=== PATIENT | female | born 1990 | race Caucasian/White ===

== ENCOUNTER 2016-09-27 18:11 | Inpatient (IN) | payer OTHER ==
--- NOTE | ~2016-09-27 | PN ---
Unit #: [id number] #: [id number] Patient: MALIHA LAU [id number] [facility] [address] [place] [address] [id number] I MR#: [id number] NAME: MALIHA LAU ROOM: [facility] Age: 26 Sex: F Admission Date: 09/27/2016 : 1990 Attending Physician: Chad Mata M.D. Admitting Physician: Chad Mata M.D. Primary Care Physician: Merari Back PROGRESS NOTES DATE 10/14/2016 DISCUSSION Ms. Lau is a 26-year-old white female who was seen today and chart was reviewed and case was discussed with the staff. She has been anxious, withdrawn though has not shown any agitation, irritability and has been cooperative with treatment recommendations as she has been taking medications and tolerating them fairly well with no reported side effects. MENTAL STATUS EXAMINATION Young white female who was casually dressed with fair personal hygiene and appears to be in no acute distress or discomfort. She was awake and alert on interaction with intact orientation. Her mood was anxious with congruent affect. Her speech is slow and restricted in content. She denies any suicidal or homicidal ideation, auditory or visual hallucinations. Insight and judgement remains slightly impaired. TREATMENT PLAN 1. Will continue her current medications and treatment protocol. Will monitor her response to the medications and make further adjustments as needed. 2. Will continue to follow up. Dictated by... Merari Hagan/lesvia TD: 10/14/2016 22:46 JOB #: [id number] Unit #: [id number] #: [id number] Patient: MALIHA LAUADARSH PROGRESS NOTES Page 1 of 1 X Chad Mata MD X PROGRESS NOTE
--- NOTE | ~2016-09-27 | PN ---
Unit #: [id number] #: [id number] Patient: MALIHA LAU [id number] [facility] [address] [place] [address] [id number] MR#: [id number] NAME: MALIHA LAU ROOM: [facility] Age: 26 Sex: F Admission Date: 09/27/2016 : 1990 Attending Physician: Chad Mata M.D. Admitting Physician: Chad Mata M.D. Primary Care Physician: Merari Back PROGRESS NOTES DATE October 15, 2016 DISCUSSION Ms. Maliha Lau is a 26-year-old white female, who was seen today and chart was reviewed and the case was discussed with the staff. She has been anxious, withdrawn, but has not shown any agitation or irritability or behavioral problems. She has been cooperative with the treatment recommendations and she has been taking the medications and tolerating them fairly well with no reported side effects. MENTAL STATUS EXAMINATION Young white female, who was casually dressed with fair personal hygiene and appears to be in no acute distress or discomfort. She was awake and alert on interaction with intact orientation. Her mood was anxious with a congruent affect. Her speech is slow and restricted in content. She denies any suicidal or homicidal ideations, and also denies any auditory or visual hallucinations. Her insight and judgment remain slightly impaired. TREATMENT PLAN 1. We will continue her on her current medications and treatment protocol, and will monitor her response to the medications, and make further adjustments as needed. 2. We will continue to followup. Dictated by... Merari Hagan/alexis TD: 10/16/2016 05:22 JOB #: [id number] Unit #: [id number] #: [id number] Patient: MALIHA LAU PROGRESS NOTES Page 1 of 1 X Chad Mata MD PROGRESS NOTE
--- NOTE | ~2016-09-27 | PN ---
Unit #: [id number] #: [id number] Patient: MALIHA LAU [id number] [facility] [address] [place] [address] [id number] MR#: [id number] NAME: MALIHA LAU ROOM: [facility] Age: 26 Sex: F Admission Date: 09/27/2016 : 1990 Attending Physician: Chad Mata M.D. Admitting Physician: Chad Mata M.D. Primary Care Physician: Merari Back PROGRESS NOTES DATE OF SERVICE October 05, 2016. DISCUSSION Ms. Lau is an 26-year-old, white female who was seen today and chart was reviewed. Her case was discussed with the staff. She has been anxious, withdrawn, and depressed. She is seclusive to herself and has been asking me all weekend long about getting the shock treatments (1) this morning, she stated that she still is (2) in that treatment modality, which I will make referral for ECT consultation. MENTAL STATUS EXAMINATION Young white female who was casually dressed with fair personal hygiene and appears to be in no acute distress or discomfort. She was awake and alert on interaction with intact orientation. Her mood was anxious and depressed with a congruent affect. She reports some suicidal ideation, but denies any homicidal ideation. Her insight and judgement remain slightly impaired. TREATMENT PLAN 1. We will continue her on current medications and treatment protocol. Will monitor her response to medications and make further adjustments as needed. 2. We will continue to follow up. Dictated by... Merari Hagan/daniel TD: 10/06/2016 12:36 JOB #: [id number] Unit #: [id number] #: [id number] Patient: MALIHA LAU FIDELINA PROGRESS NOTES Page 1 of 1 X Chad Mata MD PROGRESS NOTE
--- NOTE | ~2016-09-27 | PN ---
Unit #: [id number] #: [id number] Patient: MALIHA LAU [id number] [facility] [address] [place] [address] [id number] I MR#: [id number] NAME: MALIHA LAU ROOM: [facility] Age: 26 Sex: F Admission Date: 09/27/2016 : 1990 Attending Physician: Chad Mata M.D. Admitting Physician: Chad Mata M.D. Primary Care Physician: Merari Back PROGRESS NOTES DATE OF SERVICE: 10/09/2016 SUBJECTIVE Ms. Lau is a 26-year-old white female with mood disorder, who is scheduled to receive her second BCG today and so far has been doing fairly well with no agitation or irritability and has not shown any tolerability issues with the treatment. She has been taking her medications as well and tolerating them without any issues. MENTAL STATUS EXAMINATION Young white female, who was casually dressed with fair personal hygiene, appears to be in no acute distress or discomfort. She was awake and alert on interaction with intact orientation. Her mood was anxious with a congruent affect. She denies any suicidal or homicidal ideation. Her insight and judgment remain slightly impaired. TREATMENT PLAN 1. We will continue her on her current medications and treatment protocol. We will monitor her response to the medications and make further adjustments as needed. 2. We will continue to follow up. Dictated by... Merari Hagan/chinedul TD: 10/09/2016 12:55 JOB #: [id number] FIDELINA PROGRESS NOTES Page 1 of 1 X Chad Mata MD PROGRESS NOTE
--- NOTE | ~2016-09-27 | CO ---
Unit #: [id number] #: [id number] Patient: MALIHA SCHREIBER [id number] [place] [address] [id number] I MR#: [id number] NAME: MALIHA SCHREIBER ROOM: [facility] Age: 26 Sex: F Admission Date: 09/27/2016 : 1990 Attending Physician: Chad Mata M.D. Primary Care Physician: Brie Callahan M.D. Consultation Date: 10/11/2016 CONSULTATION REPORT SUBJECTIVE Maliha is a 26-year-old with an abnormal urinalysis. She has had some complaints of urgency and frequency. There have been no recorded increased temperatures. OBJECTIVE Urinalysis 1+ bacteria, 10 to 25 wbc's. ASSESSMENT Urinary tract infection. PLAN Bactrim DS one p.o. b.i.d. x3 days. Dictated by... Colleen AwadABertram. for Merari Cabrera/maritza TD: 10/12/2016 19:28 JOB #: [id number] CONSULTATION REPORT Page 1 of 1 X [place] CONSULTATION REPORT
--- NOTE | ~2016-09-27 | PN ---
Unit #: [id number] #: [id number] Patient: MALIHA LAU [id number] [facility] [address] [place] [address] [id number] MR#: [id number] NAME: MALIHA LAU ROOM: [facility] Age: 26 Sex: F Admission Date: 09/27/2016 : 1990 Attending Physician: Chad Mata M.D. Admitting Physician: Chad Mata M.D. Primary Care Physician: Merari Back PROGRESS NOTES DATE October 21, 2016 DISCUSSION Ms. Lau is a 26-year-old, white female who was seen today and chart was reviewed. Her case was discussed with the staff. She has been anxious and withdrawn, but has not shown any agitation, irritability, or behavioral problems and has been cooperative with treatment recommendations. She has been taking the medications and tolerating them fairly well. MENTAL STATUS EXAMINATION Young, white female who was casually dressed with fair personal hygiene and appears to be in no acute distress or discomfort. She was awake and alert on interaction with intact orientation. Her mood was anxious with a congruent affect. She denies any suicidal or homicidal ideations. Her insight and judgement remain slightly impaired. TREATMENT PLAN 1. We will continue on current medications and treatment protocol. Will monitor her response to the medications and make further adjustments as needed. 2. We will continue to follow up. Dictated by... Merari Hagan/daniel TD: 10/23/2016 09:04 JOB #: [id number] Unit #: [id number] #: [id number] Patient: MALIHA LAU FIDELINA PROGRESS NOTES Page 1 of 1 X Chad Mata MD X PROGRESS NOTE
--- NOTE | ~2016-09-27 | A ---
[facility] DATE: 10/05/16 Patient: MALIHA SCHREIBER Physician: ADRIANA Address: [address] [place] [address] Room/Bed: [address], Zip: [place] [id number] Admit Date: 09/27/16 Date of : [birth year] Height: 5 5 Weight: 209 95.97909 NUTRITIONAL ASSESSMENT: REASON: CONSULT "GASTROPARESIS" PATIENT ADMITTED FOR DEPRESSION AND SI PMH: GERD, MORBID OBESITY, MILD CP, HTN, HLD, HX ETOH ABUSE, LONG HX OF MOOD DISORDER AND COGNITIVE IMPAIRMENT Anthropometrics: HT: 5'5", WT: 210#, BMI: 34.9, %IBW: 168 Labs: 09/28/16- NUTRITIONAL LABS WNL Meds: SEROQUEL, VISTARIL, TOPAMAX, VITAMIN D, WELLBUTRIN XL, EFFEXOR XR Assessment: CHART REVIEWED, EVENTS NOTED. PATIENT IS A 26 Y/O FEMALE ADMITTED FOR DEPRESSION AND SI. PATIENT IS CURRENTLY UNEMPLOYED, HOMELESS, AND DENIES CURRENT SUBSTANCE ABUSE. PATIENT STATED A POOR APPETITE WITH NO RECENT WEIGHT CHANGES, AND HAS INCREASED SLEEP. IT IS SUSPECTED THAT PATIENT HAS HAD NON-COMPLIANCE WITH PSYCH MEDS PRIOR TO ADMIT. NURSING REPORTS CONSISTENTLY GOOD PO INTAKES AND PATIENT DID NOT SCORE ANY NUTRITIONAL RISK POINTS. PATIENT'S DIET IS CURRENTLY GI SOFT WITH FINGER FOODS ONLY, WITH LARGE PORTION ENTREES. NURSING REPORTED THAT PATIENT IS ON FINGER FOODS D/T HIGH RISK FOR SELF-HARMING BEHAVIORS, PATIENT IS ON A GI-SOFT DIET PER HER REQUEST, AND SHE HAS NO C/O N/V/D/C AND NO GASTROINTESTINAL DISTRESS ATT. PATIENT REQUESTED GI SOFT DIET BECAUSE APPARENTLY THAT WAS THE DIET ORDERED FOR HER IN THE HOSPITAL. WEIGHT HX PER [facility] SHOWS A ~20# WEIGHT GAIN X 1 YEAR. THERE ARE NO SKIN OR GI ISSUES NOTED ATT. PATIENT HAS VERY FREQUENT ADMISSIONS TO THIS FACILITY. CURRENT PSYCH MEDS MAY CAUSE WEIGHT AND APPETITE FLUCTUATIONS. Dx: EXCESSIVE CALORIC INTAKE R/T CURRENT CONDITION, OBESITY AEB ~20# WEIGHT GAIN X 1 YEAR, HIGH BMI, >110% OF IBW Intervention: 1. GI SOFT DIET WITH FINGER FOODS, 2. MEDS PER MD, 3. PSYCH Monitoring, Evaluation and Goals: 1. ADEQUATE PO INTAKES >50% OF MEALS 2. PREVENT, CORRECT MICRO/MACRO NUTRIENT DEFICIENCIES 3. PROMOTE A STEADY WEIGHT LOSS TOWARDS A HEALTHY BMI OF 19-25, PREVENT FURTHER WEIGHT GAIN MONITOR: WEIGHTS, LABS, PO/FLUID INTAKES [facility] DATE: 10/05/16 Patient: MALIHA SCHREIBER Physician: ADRIANA Address: [address] Room/Bed: [facility], Zip: [place] [address] Admit Date: 09/27/16 Date of : [birth year] Height: 5 5 Weight: 209 95.16619 Recommendations: 1. CONTINUE FINGER FOODS D/T SELF-HARM RISK TOLERATED. RECOMMEND D/CING GI SOFT DIET AND CHANGE TO HEART HEALTHY D/T NO C/O GASTROINTESTINAL DISTRESS ATT. ALSO RECOMMEND D/CING LARGE PORTION ENTREES D/T NO NUTRITIONAL NEED FOR INCREASED CALORIC INTAKES. IF PATIENT HAS C/O HUNGER OFFER HEALTHY SNACKS BETWEEN MEALS. 2. ENCOURAGE ADEQUATE PO AND FLUID INTAKES 3. IF PATIENT DOES HAVE C/O N/V/D/C OR GASTROPARESIS, PLEASE CONSULT MD FOR FURTHER ASSESSMENT. RD TO F/U PER PROTOCOL AND PRN R/T PATIENT MILDLY COMPROMISED Respectfully, MARIA G ODOM, RD, LD [facility] cc: client file
--- NOTE | ~2016-09-27 | PN ---
Unit #: [id number] #: [id number] Patient: MALIHA LAU [id number] [facility] [address] [place] [address] [id number] I MR#: [id number] NAME: MALIHA LAU ROOM: [facility] Age: 26 Sex: F Admission Date: 09/27/2016 : 1990 Attending Physician: Chad Mata M.D. Admitting Physician: Chad Mata M.D. Primary Care Physician: Merari Back PROGRESS NOTES DATE 10/22/2016 DISCUSSION Ms. Lau is a 26-year-old white female who was seen today and chart was reviewed and case was discussed with the staff. She has successfully completed her shock treatments and reports that she is feeling better and has been reporting improvement in depression and anxiety and has been taking medications and tolerating them fairly well with no reported side effects. MENTAL STATUS EXAMINATION Young white female who was casually dressed with fair personal hygiene, appears to be in no acute distress or discomfort. She was awake and alert on interaction with intact orientation. Her mood was anxious and depressed with congruent affect. She denies any suicidal or homicidal ideations. Her insight and judgement remains slightly impaired. TREATMENT PLAN 1. We will continue her on her current medications and treatment protocol. We will monitor her response to the medications and make further adjustments as needed. 2. We will continue to follow up. Dictated by... Merari Hagan/jack TD: 10/25/2016 21:44 JOB #: [id number] Unit #: [id number] #: [id number] Patient: MALIHA LAU FIDELINA PROGRESS NOTES Page 1 of 1 X Chad Mata MD X PROGRESS NOTE
--- NOTE | ~2016-09-27 | PN ---
Unit #: [id number] #: [id number] Patient: MALIHA LAU [id number] [facility] [address] [place] [address] [id number] MR#: [id number] NAME: MALIHA LAU ROOM: [facility] Age: 26 Sex: F Admission Date: 09/27/2016 : 1990 Attending Physician: Chad Mata M.D. Admitting Physician: Chad Mata M.D. Primary Care Physician: Merari Back PROGRESS NOTES DATE 10/02/2016 DISCUSSION Ms. Lau is a 26-year-old white female with mood disorder who was seen today and chart was reviewed and case was discussed with the staff who informed me that patient was found to be cutting on herself last night in her room and as such has been moved to a video monitoring private room and has been kept in controlled surveillance. Meanwhile, patient does report persistent depression, anxiety and feelings of hopelessness. She has been taking medications and tolerating them fairly well. MENTAL STATUS EXAMINATION Young white female who was casually dressed with fair personal hygiene and appears to be in no acute distress or discomfort. She was awake and alert on interaction with intact orientation. Her mood was anxious and depressed with congruent affect. Her speech is slow and restricted in content. She reports having suicidal ideation but denies any homicidal ideations and also denies any auditory or visual hallucinations. Her insight and judgement remains slightly impaired. TREATMENT PLAN 1. Will continue on current medications and treatment protocol. Will monitor her response to the medications and make further adjustments as needed. 2. Will continue to follow up. Dictated by... Merari Hagan/lesvia TD: 10/02/2016 15:18 JOB #: [id number] Unit #: [id number] #: [id number] Patient: MALIHA LAU PROGRESS NOTES Page 1 of 1 X Chad Mata MD PROGRESS NOTE
--- NOTE | ~2016-09-27 | PN ---
Unit #: [id number] #: [id number] Patient: MALIHA LAU [id number] [facility] [address] [place] [address] [id number] I MR#: [id number] NAME: MALIHA LAU ROOM: [facility] Age: 26 Sex: F Admission Date: 09/27/2016 : 1990 Attending Physician: Chad Mata M.D. Admitting Physician: Chad Mata M.D. Primary Care Physician: Merari Back PROGRESS NOTES DATE October 13, 2016 DISCUSSION Ms. Lau is a 26-year-old white female, who was seen today and chart was reviewed and the case was discussed with the staff. The patient has received three ECTs so far but still has been reporting persistent depressive symptoms with feelings of hopelessness. Meanwhile, she has been taking her medications and tolerating them fairly well with no reported side effects. MENTAL STATUS EXAMINATION Young white female, who was casually dressed with fair personal hygiene and appears to be in no acute distress or discomfort. She was awake and alert on interaction with intact orientation. Her mood was anxious and depressed with a congruent affect. Her speech is slow and goal-directed. She denies any current suicidal or homicidal ideations. Her insight and judgment remain slightly impaired. TREATMENT PLAN 1. We will continue her on her current medications and treatment protocol, and will monitor her response to the medications, and make further adjustments as needed. 2. We will continue to followup. Dictated by... Merari Hagan/alexis TD: 10/14/2016 10:30 JOB #: [id number] Unit #: [id number] #: [id number] Patient: MALIHA LAU PROGRESS NOTES Page 1 of 1 X Chad Mata MD PROGRESS NOTE
--- NOTE | ~2016-09-27 | PN ---
Unit #: [id number] #: [id number] Patient: MALIHA LAU [id number] [facility] [address] [place] [address] [id number] I MR#: [id number] NAME: MALIHA LAU ROOM: [facility] Age: 26 Sex: F Admission Date: 09/27/2016 : 1990 Attending Physician: Chad Mata M.D. Admitting Physician: Chad Mata M.D. Primary Care Physician: Merari Back PROGRESS NOTES DATE 10/20/2016. DISCUSSION Ms. Lau is a 26-year-old white female who was seen today and chart was reviewed and case was discussed with the staff. She has been anxious, withdrawn and reports persistent depression and anxiety. She has been taking medication and tolerating them. She has a flat affect. MENTAL STATUS EXAMINATION Young white female who was casually dressed with fair personal hygiene, appears to be in no acute distress or discomfort. She was awake and alert on interaction with intact orientation. Her mood was anxious and depressed with congruent affect. She reports suicidal ideation, but denies any homicidal ideation. Her insight and judgement remain slightly impaired. TREATMENT PLAN 1. We will continue her on her current medications and treatment protocol. We will monitor her response and make further adjustments as needed. 2. We will continue to follow up. Dictated by... Chad Mata M.D. IAA/gz TD: 10/21/2016 14:18 JOB #: [id number] Unit #: [id number] #: [id number] Patient: MALIHA LAUADARSH PROGRESS NOTES Page 1 of 1 X Chad Mata MD X PROGRESS NOTE
--- NOTE | ~2016-09-27 | PN ---
Unit #: [id number] #: [id number] Patient: MALIHA LAU [id number] [facility] [address] [place] [address] [id number] I MR#: [id number] NAME: MALIHA LAU ROOM: [facility] Age: 26 Sex: F Admission Date: 09/27/2016 : 1990 Attending Physician: Chad Mata M.D. Admitting Physician: Chad Mata M.D. Primary Care Physician: Merari Back PROGRESS NOTES DATE OF SERVICE October 06, 2016 DISCUSSION Ms. Lau is a 26-year-old, white female who was seen today and chart was reviewed. Her case was discussed with the staff. She has been anxious, withdrawn, and depressed with persistent depressive symptoms and was referred to electroconvulsive therapy yesterday on request and she has seen Dr. Eubanks and she states that she has been accepted and (1) that she might be able to start her first shock treatment tomorrow. MENTAL STATUS EXAMINATION Young white female who was casually dressed with fair personal hygiene and appears to be in no acute distress or discomfort. She was awake and alert on interaction with intact orientation. Her mood was anxious and depressed with a congruent affect. Her speech is slow and goal-directed. Patient reports having suicidal ideation, but denies any homicidal ideation. Her insight and judgement remain slightly impaired. TREATMENT PLAN 1. We will continue on current medications and treatment protocol. Will monitor her response to the medications and make further adjustments as needed. 2. We will continue to follow up. Dictated by... Merari Hagan/daniel TD: 10/06/2016 12:44 JOB #: [id number] Unit #: [id number] #: [id number] Patient: MALIHA LAU PROGRESS NOTES Page 1 of 1 X Chad Mata MD PROGRESS NOTE
--- NOTE | ~2016-09-27 | PN ---
Unit #: [id number] #: [id number] Patient: MALIHA LAU [id number] [facility] [address] [place] [address] [id number] I MR#: [id number] NAME: MALIHA LAU. ROOM: [facility] Age: 26 Sex: F Admission Date: 09/27/2016 : 1990 Attending Physician: Chad Mata M.D. Admitting Physician: Chad Mata M.D. Primary Care Physician: Merari Back PROGRESS NOTES DATE 10/18/2016 DISCUSSION Ms. Lau is a 26-year-old white female who was seen today and chart was reviewed and case was discussed with the staff. She has been anxious, withdrawn and rather seclusive to herself. Meanwhile, she has been cooperative with treatment recommendations as she has been taking the medications and tolerating them fairly well. MENTAL STATUS EXAMINATION Young white female who was casually dressed with fair personal hygiene, appears to be in no acute distress or discomfort. She was awake and alert on interaction with intact orientation. Her mood was anxious with congruent affect. She denies any suicidal or homicidal ideations. Her insight and judgement remains slightly impaired. TREATMENT PLAN 1. We will continue her on her current medications and treatment protocol. We will monitor her response and make further adjustments as needed. 2. We will continue to follow up. Dictated by... Merari Hagan/jack TD: 10/19/2016 22:28 JOB #: [id number] Unit #: [id number] #: [id number] Patient: MALIHA LAU PROGRESS NOTES Page 1 of 1 X Chad Mata MD X PROGRESS NOTE
--- NOTE | ~2016-09-27 | PN ---
Unit #: [id number] #: [id number] Patient: MALIHA LAU [id number] [facility] [address] [place] [address] [id number] I MR#: [id number] NAME: MALIHA LAU ROOM: [facility] Age: 26 Sex: F Admission Date: 09/27/2016 : 1990 Attending Physician: Chad Mata M.D. Admitting Physician: Chad Mata M.D. Primary Care Physician: Merari Back PROGRESS NOTES DATE OF SERVICE: 10/04/2016 SUBJECTIVE Ms. Lau is a 26-year-old white female, who was seen today and chart was reviewed and the case was discussed with the staff. She reports persistent anxiety and depression and has been complaining of nightmares and poor sleep at night. Meanwhile, she has been taking medications and tolerating them fairly well with no reported side effects. MENTAL STATUS EXAMINATION Young white female, who was casually dressed with fair personal hygiene, appears to be in no acute distress or discomfort. She was awake and alert on interaction with intact orientation. Her mood was anxious with a congruent affect. She denies any suicidal or homicidal ideation and also denies any auditory or visual hallucinations. Her insight and judgment remain slightly impaired. TREATMENT PLAN 1. We will continue on her current medications and treatment protocol. We will monitor her response to medications and make further adjustments as needed. 2. We will continue to follow up. Dictated by... Merari Hagan/maritza TD: 10/06/2016 06:17 JOB #: [id number] [facility] PROGRESS NOTES Page 1 of 1 X Chad Mata MD PROGRESS NOTE
--- NOTE | ~2016-09-27 | PN ---
Unit #: [id number] #: [id number] Patient: MALIHA LAU [id number] [facility] [address] [place] [address] [id number] I MR#: [id number] NAME: MALIHA LAU ROOM: 12 Age: 26 Sex: F Admission Date: 09/27/2016 : 1990 Attending Physician: Chad Mata M.D. Admitting Physician: Chad Mata M.D. Primary Care Physician: Merari Back PROGRESS NOTES DATE September 30, 2016 DISCUSSION Ms. Lau is a 26-year-old white female, who was seen today and chart was reviewed and the case was discussed with the staff. She reports not feeling any better and reports persistent depression and anxiety and having suicidal thoughts with a plan to overdose and asked me if she will be a candidate for shock treatment. Meanwhile, she has been taking the medications and tolerating them fairly well but has been complaining of excessive sedation from the nighttime dose of Seroquel which hampers her ability to function in the daytime and wants the dose to e cut into half. MENTAL STATUS EXAMINATION Young white female, who was casually dressed with fair personal hygiene and appears to be in no acute distress or discomfort. She was awake and alert on interaction with intact orientation. Her mood was anxious with a congruent affect. She reports having suicidal ideation but denies any homicidal ideations. Her insight and judgment remain significantly impaired. TREATMENT PLAN 1. We will continue her on her current medications and treatment protocol, and will monitor her response to the medications, and make further adjustments as needed. 2. We will continue to followup. Dictated by... Merari Hagan/alexis TD: 09/30/2016 12:58 JOB #: [id number] Unit #: [id number] #: [id number] Patient: MALIHA LAU PROGRESS NOTES Page 1 of 1 X Chad Mata MD PROGRESS NOTE
--- NOTE | ~2016-09-27 | PN ---
Unit #: [id number] #: [id number] Patient: MALIHA LAU [id number] [facility] [address] [place] [address] [id number] MR#: [id number] NAME: MALIHA LAU ROOM: [facility] Age: 26 Sex: F Admission Date: 09/27/2016 : 1990 Attending Physician: Chad Mata M.D. Admitting Physician: Chad Mata M.D. Primary Care Physician: Merari Back PROGRESS NOTES DATE 10/12/2016 DISCUSSION Ms. Lau is a 26-year-old white female who was seen today and chart was reviewed and case was discussed with the staff. She has been anxious, withdrawn and rather seclusive to herself and is scheduled to receive her third ECT today and so far has not had any tolerability issues but she has not been able to experience any therapeutic benefits yet. MENTAL STATUS EXAMINATION Young white female who was casually dressed with fair personal hygiene, appears to be in no acute distress or discomfort. She was awake and alert on interaction with intact orientation. Her mood was anxious and depressed with congruent affect. She denies any suicidal or homicidal ideations. Also, denies any auditory or visual hallucinations. Her insight and judgement remains slightly impaired. TREATMENT PLAN 1. We will continue her on her current medications and treatment protocol. We will monitor her response to the medications and make further adjustments as needed. 2. We will continue to follow up. Dictated by... Merari Hagan/jack TD: 10/14/2016 00:42 JOB #: [id number] Unit #: [id number] #: [id number] Patient: MALIHA LAU FIDELINA PROGRESS NOTES Page 1 of 1 X Chad Mata MD PROGRESS NOTE
--- NOTE | ~2016-09-27 | PA ---
Unit #: [id number] #: [id number] [facility]: [facility] [id number] [facility] [place] [address] [id number] I MR#: [id number] NAME: MALIHA LAU ROOM: 12 Age: 26 Sex: F Admission Date: 09/27/2016 : 1990 Date of Assessment: 09/28/2016 Attending Physician: Chad Mata M.D. Admitting Physician: Chad Mata M.D. Primary Care Physician: Brie Callahan M.D. PSYCHIATRIC ASSESSMENT DATE OF SERVICE 09/28/2016. IDENTIFYING DATA Ms. Lau is a 26-year-old single white female who is very well known to us from previous multiple encounters and was self-referred to the hospital, and was transferred to us from [facility]. CHIEF COMPLAINT "Suicidal ideation. My plan is to overdose on my blood pressure medication." HISTORY OF PRESENT ILLNESS Ms. Lau is a 26-year-old white female with long history of mood disorder and cognitive impairment, who is known to us from previous encounter and was self-referred to the hospital. She walks into the emergency room at [facility] reporting having suicidal ideation with a plan to overdose on blood pressure medication and that she had nightmares, then she found out that her ex-boyfriend just got engaged, and does endorse increasing stress, trauma, depression, anxiety, feelings of hopelessness and helplessness, and suicidal ideations with intent and plan, and was seen to be danger to self and as such, recommendation for inpatient level of care. SUBSTANCE ABUSE HISTORY The patient reports history of alcohol abuse, but denies any other drug abuse. She reports that she has not had anything to drink in the last week. PAST PSYCHIATRIC HISTORY The patient has had history of multiple inpatient psychiatric hospitalizations at [facility] and has been diagnosed and treated for mood disorder. Review of the medical records indicate that she is supposed to be on a combination of Seroquel, Wellbutrin, and Effexor, though it is not clear if she has been compliant with medications. PAST MEDICAL HISTORY The patient's medical history is significant for gastroesophageal reflux disease asthma. ALLERGIES Morphine. PERSONAL AND SOCIAL HISTORY Unit #: [id number] #: [id number] Patient: MALIHA LAU A 26-year-old white female who reports that she is single, unemployed, and homeless and has poor social support system. MENTAL STATUS EXAMINATION Young white female who was casually dressed with fair personal hygiene, appears to be in no acute distress or discomfort. She was awake and alert on interaction with intact orientation to time, place, and person. Her mood was anxious and depressed with a congruent affect. Her speech was slow and goal directed. She reports having suicidal ideation, but denies any homicidal ideations, and also denies any auditory or visual hallucinations. Her insight and judgment remain significantly impaired. DIAGNOSTIC IMPRESSION Psychiatric: Major depressive disorder, recurrent, moderate, without psychotic features. Medical: Asthma, gastroesophageal reflux disease. Stressors: Moderate psychosocial stressors. TREATMENT PLAN 1. The patient has presented with history of mood disorder and has been decompensating and will need inpatient hospitalization for safety and stabilization. We will start her back on her home medications. We will adjust the medications and monitor response. 2. Supportive therapy was provided to the patient. 3. Safe, structured, and nourishing environment will be provided. ESTIMATED LENGTH OF STAY 5 to 7 days. ABILITY TO HELP SELF Limited. WILLINGNESS TO HELP SELF The patient appears to be willing to help self. STRENGTHS 1. Communicative. 2. Cooperative. PROBLEMS 1. Chronic dysphoric symptoms. 2. Poor social support system. DISCHARGE CRITERIA This will be contingent upon the patient's ability to show resolution of her depression and anxiety and her ability to stay safe to herself, particularly after discharge from the hospital. Dictated by... Merari Hagan/maritza TD: 09/28/2016 23:37 JOB #: [id number] Unit #: [id number] #: [id number] Patient: MALIHA LAU PSYCHIATRIC ASSESSMENT Page 1 of 1 X Chad Mata MD PSYCHIATRIC ASSESSMENT
--- NOTE | ~2016-09-27 | PN ---
Unit #: [id number] #: [id number] Patient: MALIHA LAU [id number] [facility] [address] [place] [address] [id number] I MR#: [id number] NAME: MALIHA LAU ROOM: [facility] Age: 26 Sex: F Admission Date: 09/27/2016 : 1990 Attending Physician: Chad Mata M.D. Admitting Physician: Chad Mata M.D. Primary Care Physician: Merari Back PROGRESS NOTES DATE 10/16/2016 DISCUSSION Ms. Lau is a 26-year-old white female who was seen today and chart was reviewed and case was discussed with the staff. She has been anxious, withdrawn and was getting ready to go for her next ECT this morning and so far has been tolerating them fairly well though has not been able to show much of a therapeutic response. MENTAL STATUS EXAMINATION Young white female who was casually dressed with fair personal hygiene and appears to be in no acute distress or discomfort. She was awake and alert on interaction with intact orientation. Her mood was anxious and depressed with congruent affect. She reports having suicidal ideation but denies any homicidal ideations. Her insight and judgement remains slightly impaired. TREATMENT PLAN 1. We will continue on current medications and treatment protocol. Will monitor her response to the medications and make further adjustments as needed. 2. Will continue to follow up. Dictated by... Chad Mata M.D. IAA/walth TD: 10/16/2016 22:59 JOB #: [id number] Unit #: [id number] #: [id number] Patient: MALIHA LAU FIDELINA PROGRESS NOTES Page 1 of 1 X Chad Mata MD X PROGRESS NOTE
--- NOTE | ~2016-09-27 | PN ---
Unit #: [id number] #: [id number] Patient: MALIHA LAU [id number] [facility] [address] [place] [address] [id number] I MR#: [id number] NAME: MALIHA LAU ROOM: 12 Age: 26 Sex: F Admission Date: 09/27/2016 : 1990 Attending Physician: Chad Mata M.D. Admitting Physician: Chad Mata M.D. Primary Care Physician: Merari Back PROGRESS NOTES DATE OF SERVICE 09/29/2016 DISCUSSION Ms. Lau is a 26-year-old white female who was seen today. Chart was reviewed and case was discussed with the staff. She has been anxious, withdrawn, depressed, and rather seclusive to herself and has been expressing persistent feelings of hopelessness. Meanwhile, she has been taking the medications and tolerating them fairly well with no reported side effects. MENTAL STATUS EXAMINATION Young white female who is casually dressed with fair personal hygiene, appears to be in no acute distress or discomfort. She was awake and alert on interaction with intact orientation. Her mood is anxious and depressed with congruent affect. She reports having suicidal ideation but denies any homicidal ideation. Her insight and judgment remain slightly impaired. TREATMENT PLAN 1. We will continue her on her current medications and treatment protocol. We will monitor her response to the medications and make further adjustments as needed. 2. We will continue to follow up. Dictated by... Chad Mata M.D. IAA/bzg TD: 09/29/2016 10:56 JOB #: [id number] Unit #: [id number] #: [id number] Patient: MALIHA LAU FIDELINA PROGRESS NOTES Page 1 of 1 X Chad Mata MD PROGRESS NOTE
--- NOTE | ~2016-09-27 | PN ---
Unit #: [id number] #: [id number] Patient: MALIHA LAU [id number] [facility] [address] [place] [address] [id number] I MR#: [id number] NAME: MALIHA LAU ROOM: [facility] Age: 26 Sex: F Admission Date: 09/27/2016 : 1990 Attending Physician: Chad Mata M.D. Admitting Physician: Chad Mata M.D. Primary Care Physician: Merari Back PROGRESS NOTES DATE 10/08/2016 DISCUSSION Ms. Lau is a 26-year-old white female who was seen today and chart was reviewed and case was discussed with the staff. She received her first ECT yesterday. She tolerated it fairly well and denies having any tolerability issues with it. Meanwhile, she has taking medications and tolerating them fairly well with no reported side effects. MENTAL STATUS EXAMINATION Young white female who was casually dressed with fair personal hygiene, appears to be in no acute distress or discomfort. She was awake and alert on interaction with intact orientation. Her mood was anxious with congruent affect. She denies any suicidal or homicidal ideations. Her insight and judgement remains slightly impaired. TREATMENT PLAN 1. We will continue her on her current medications and treatment protocol. We will monitor her response to the medication and make further adjustments as needed. 2. We will continue to follow up. Dictated by... Merari Hagan/jack TD: 10/12/2016 04:14 JOB #: [id number] Unit #: [id number] #: [id number] Patient: MALIHA LAU FIDELINA PROGRESS NOTES Page 1 of 1 X Chad Mata MD X PROGRESS NOTE
--- NOTE | ~2016-09-27 | DS ---
Unit #: [id number] #: [id number] [facility]: [facility] LAU [id number] [facility] [place] [address] [id number] I MR#: [id number] NAME: MALIHA LAU ROOM: [facility] Age: 26 Sex: F Admission Date: 09/27/2016 : 1990 Discharge Date: 10/23/2016 Attending Physician: Chad Mata M.D. Primary Care Physician: Brie Callahan M.D. DISCHARGE SUMMARY IDENTIFYING DATA Ms. Lau is a 26-year-old single, white female, who is known to us from previous encounter and was self-referred to the hospital. DISCHARGE DIAGNOSES Psychiatric: Major depressive disorder, recurrent, moderate, without psychotic features. Medical: Asthma. Stressors: Moderate psychosocial stressors. HISTORY OF PRESENT ILLNESS Please see initial psychiatric evaluation for details. PAST PSYCHIATRIC HISTORY Please see initial psychiatric evaluation for details. PAST MEDICAL HISTORY Please see initial psychiatric evaluation for details. HOSPITAL COURSE The patient was admitted to the adult psychiatric unit at [facility] and was oriented to the hospital environment. Routine p.r.n. medications were initiated, and she was started back on her home medications and medications were adjusted. However, the patient was voicing some persistent depressive symptoms with feelings of hopelessness and helplessness, and suicidal ideations, and was not responding to medications and medications were maintained. The patient requested that she wanted to be considered a candidate for electroconvulsive therapy treatment and medical consultation with Dr. Eubanks for such treatment was made and she was approved and was able to get her treatment started, which led to the prolonged treatment stay in the hospital; however, she was polite and pleasant and cooperative with treatment recommendation and following treatment recommendations and was able to complete electroconvulsive therapy treatment without any complications, hesitation, and was able to show a therapeutic response with significant improvement in her depressive symptoms and as such, it was decided that she will be discharged home. We will continue treatment on an outpatient basis. DISCHARGE MEDICATIONS Effexor XR 150 mg a day for depression, Wellbutrin XL 300 mg in the morning for depression, Topamax 100 mg b.i.d. for mood disorder, Minipress 2 mg at bedtime for PTSD, vitamin D3 of 1000 units a day for vitamin D deficiency, Protonix 40 mg a day for acid reflux, Singulair 10 mg at bedtime for allergies, Claritin 10 mg a day for allergies, and Seroquel Unit #: [id number] #: [id number] Patient: MALIHA LAU 100 mg at bedtime for mood disorder. DISCHARGE CONDITION Stable. PROGNOSIS Fair. Dictated by... Merari Hagan/maritza TD: 10/23/2016 23:28 JOB #: [id number] DISCHARGE SUMMARY Page 1 of 1 X Chad Mata MD X DISCHARGE SUMMARY
--- NOTE | ~2016-09-27 | PN ---
Unit #: [id number] #: [id number] Patient: MALIHA LAU [id number] [facility] [address] [place] [address] [id number] I MR#: [id number] NAME: MALIHA LAU ROOM: [facility] Age: 26 Sex: F Admission Date: 09/27/2016 : 1990 Attending Physician: Chad Mata M.D. Admitting Physician: Chad Mata M.D. Primary Care Physician: Merari Back PROGRESS NOTES DATE 10/17/2016 DISCUSSION Ms. Lau is a 26-year-old white female with mood disorder who was seen today and chart was reviewed and case was discussed with the staff. She has been anxious, withdrawn though has not shown any agitation, irritability and has been cooperative with treatment recommendations as she has been taking the medications and tolerating them fairly well with no reported side effects. MENTAL STATUS EXAMINATION Young white female who was casually dressed with fair personal hygiene, appears to be in no acute distress or discomfort. She was awake and alert on interaction with intact orientation. Her mood was anxious with congruent affect. She denies any suicidal or homicidal ideations. Her insight and judgement remains slightly impaired. TREATMENT PLAN 1. We will continue her on her current medications and treatment protocol. We will monitor her response to the medication and make further adjustments as needed. 2. We will continue to follow up. Dictated by... Merari Hagan/jack TD: 10/19/2016 02:27 JOB #: [id number] Unit #: [id number] #: [id number] Patient: MALIHA LAU FIDELINA PROGRESS NOTES Page 1 of 1 X Chad Mata MD PROGRESS NOTE
--- NOTE | ~2016-09-27 | PN ---
Unit #: [id number] #: [id number] Patient: MALIHA LAU [id number] [facility] [address] [place] [address] [id number] I MR#: [id number] NAME: MALIHA LAU ROOM: [facility] Age: 26 Sex: F Admission Date: 09/27/2016 : 1990 Attending Physician: Chad Mata M.D. Admitting Physician: Chad Mata M.D. Primary Care Physician: Merari Back PROGRESS NOTES DATE OF SERVICE October 10, 2016 DISCUSSION Ms. Lau is a 26-year-old, white female who was seen today and chart was reviewed. Her case was discussed with the staff. They report patient has been anxious, withdrawn, and rather seclusive to herself and has received two ECTs so far without any tolerability issues. support services tech has brought to my attention that patient has also (1) and TB skin test needs to be initiated to look for a different placement. MENTAL STATUS EXAMINATION Young, white female who was casually dressed with fair personal hygiene and appears to be in no acute distress or discomfort. She was awake and alert on interaction with intact orientation. Her mood was anxious with a congruent affect. She denies any suicidal or homicidal ideation and also denies any auditory or visual hallucinations. Her insight and judgement remain slightly impaired. TREATMENT PLAN 1. Will continue on current medications and treatment protocol. Will monitor her response to the medications and make further adjustments as needed. 2. We will continue to follow up. Dictated by... Merari Hagan/daniel TD: 10/13/2016 11:34 JOB #: [id number] Unit #: [id number] #: [id number] Patient: MALIHA LAU FIDELINA PROGRESS NOTES Page 1 of 1 X Chad Mata MD PROGRESS NOTE
--- NOTE | ~2016-09-27 | PN ---
Unit #: [id number] #: [id number] Patient: MALIHA LAU [id number] [facility] [address] [place] [address] [id number] I MR#: [id number] NAME: MALIHA LAU ROOM: [facility] Age: 26 Sex: F Admission Date: 09/27/2016 : 1990 Attending Physician: Chad Mata M.D. Admitting Physician: Chad Mata M.D. Primary Care Physician: Merari Back PROGRESS NOTES DATE OF SERVICE: 10/03/2016 SUBJECTIVE Ms. Lau is a 26-year-old white female, who was seen today and chart was reviewed and the case was discussed with the staff. When approached, she was laying in her bed, though she was able to wake up and talk to me and reports that she is still feeling the same referring to her persistent depression and anxiety and suicidal thoughts. Meanwhile, she has been taking the medications and tolerating them fairly well and also has requested to be considered a candidate for shock treatments and to be referred to that treatment modality. MENTAL STATUS EXAMINATION Young white female, who was casually dressed with fair personal hygiene, appears to be in no acute distress or discomfort. She was awake and alert on interaction with intact orientation. Her mood was anxious with a congruent affect. Her speech was slow and goal directed. She reports having suicidal ideation, but denies any homicidal ideation. Her insight and judgment remain significantly impaired. TREATMENT PLAN 1. We will continue her on her current medications and treatment protocol. We will consider referring her to ECTs as the potential treatment option right after this weekend. 2. We will continue to follow up. Dictated by... Merari Hagan/maritza TD: 10/03/2016 19:07 JOB #: [id number] Unit #: [id number] #: [id number] Patient: MALIHA LAU FIDELINA PROGRESS NOTES Page 1 of 1 X Chad Mata MD PROGRESS NOTE
--- NOTE | ~2016-09-27 | HP ---
Unit #: [id number] #: [id number] Patient: MALIHA SCHREIBER [id number] [place] [address] [id number] MR#: [id number] NAME: MALIHA SCHREIBER. ROOM: 12 Age: 26 Sex: F Admission Date: 09/27/2016 : 1990 Attending Physician: Chad Mata M.D. Admitting Physician: Chad Mata M.D. Primary Care Physician: Brie Callahan M.D. HISTORY AND PHYSICAL HISTORY OF PRESENT ILLNESS Maliha is a 26 year old admitted to [address] [place] [address] with depression and verbalizing wanting to hurt herself. She has had other admissions to this facility for the same. PAST MEDICAL HISTORY 1. Morbid obesity. 2. Cerebral palsy, mild. 3. High blood pressure. 4. History of migraine headaches. 5. Hyperlipidemia. PAST SURGICAL HISTORY 1. Appendectomy 2. Cholecystectomy 3. T & A ALLERGIES Morphine SOCIAL HISTORY She denies cigarettes, alcohol and illicit drug use. FAMILY HISTORY Medically noncontributory. REVIEW OF SYSTEMS CONSTITUTIONAL: No fever or chills. HEENT: Denies any sore throat, ear pain or runny nose. CARDIOVASCULAR: Denies chest pain, irregular heart rhythm or palpitations. CHEST: Denies shortness of breath or cough. No hemoptysis. GASTROINTESTINAL: Denies nausea, vomiting, diarrhea or chronic constipation. ENDOCRINE: Denies history of increased thirst or urination. No recent significant weight loss or gain. GENITOURINARY: Denies dysuria, frequency, or hematuria. SKIN: Denies any rashes. HEMATOLOGIC: Denies history of increased bleeding or bruising. MUSCULOSKELETAL: Denies any hot, swollen joints. No generalized muscle pain. NEUROLOGIC: Denies problems with vision or speech. No frequent, severe Unit #: [id number] #: [id number] Patient: MALIHA SCHREIBER headaches. No numbness, tingling or weakness in any extremities. Denies loss of bladder or bowel control. CURRENT MEDICATIONS 1. Singulair 10 mg q.h.s. 2. Minipress 2 mg q.h.s. 3. Seroquel 200 mg q.h.s. 4. Vistaril p.r.n. 5. Milk of Magnesia p.r.n. 6. Maalox p.r.n. 7. Tylenol p.r.n. 8. Topamax 100 mg b.i.d. 9. Claritin 10 mg daily 10. Protonix 40 mg daily 11. Flonase nasal spray 12. Vitamin D 300 units daily 13. Wellbutrin XL 300 mg q.a.m. 14. Zebeta 5 mg daily 15. Effexor XR 150 mg daily PHYSICAL EXAMINATION GENERAL: Alert, obese, in no apparent distress. VITAL SIGNS: Blood pressure 130/82, heart rate 80, respirations 16, temperature 98.6. WEIGHT: 210 pounds. HEIGHT: 5'5". SKIN: Warm and dry without rash or lesion. HEENT: Normocephalic. TMs not viewed. Oral and nasal passages clear. Conjunctivae clear. Pupils equal, round and reactive to light and accommodation. Extraocular movements intact. NECK: Supple without lymphadenopathy or thyromegaly. HEART: Regular rate and rhythm without murmur. LUNGS: Clear. ABDOMEN: Soft, nontender. : Not done. EXTREMITIES: No evidence of cyanosis, clubbing or edema. Moves all extremities without focal deficit. NEUROLOGICAL: Grossly within normal limits. Cranial Nerves: II: Visual clay are intact. III, IV AND : Extraocular movements are intact. Pupils are equal, round and reactive to light. V: Facial sensation is grossly normal. VII: Facial movements and expression are normal. VIII: Auditory acuity grossly intact. IX, X: Uvula is midline. Phonation is normal. XI: Patient shrugs shoulders and turns head normally. XII: Tongue protrudes in the midline. Sensory and Motor Function: Sensory and motor sensation is grossly normal. Motor: moves all extremities well. Coordination: Gait is normal. Deep Tendon Reflexes: Intact. IMPRESSION Psychiatric admission RECOMMENDATIONS PSYCHIATRIC: Per psychiatrist. MEDICAL: I see no contraindications to participating in facility's activities. Unit #: [id number] #: [id number] Patient: MALIHA SCHREIBER MEDICAL PROGNOSIS Good. MEDICAL CONDITION Stable. Dictated by... La Nowak P.A.-C. for Merari Cabrera/jack TD: 09/28/2016 19:51 JOB #: [id number] HISTORY AND PHYSICAL X La Nowak HISTORY AND PHYSICAL
--- NOTE | ~2016-09-27 | PN ---
Unit #: [id number] #: [id number] Patient: MALIHA LAU [id number] [facility] [address] [place] [address] [id number] MR#: [id number] NAME: MALIHA LAU ROOM: [facility] Age: 26 Sex: F Admission Date: 09/27/2016 : 1990 Attending Physician: Chad Mata M.D. Admitting Physician: Chad Mata M.D. Primary Care Physician: Merari Back PROGRESS NOTES DATE 10/07/2016 DISCUSSION Ms. Lau is a 26-year-old white female with mood disorder who was seen today and chart was reviewed and case was discussed with the staff. She is scheduled to receive her first ECT today and appears to be optimistic about that treatment modality helping relieve her depressive symptoms. MENTAL STATUS EXAMINATION Young white female who was fair personal hygiene and appears to be in no acute distress or discomfort. She was awake and alert on interaction with intact orientation. Her mood was anxious and depressed with congruent affect. She denies any suicidal or homicidal ideations. Her insight and judgement remains slightly impaired. TREATMENT PLAN 1. Will continue current medications and treatment protocol. Will monitor her response to medications and make further adjustments as needed. 2. Will continue to follow up. Dictated by... Chad Mata M.D. IAA/lesvia TD: 10/08/2016 18:14 JOB #: [id number] Unit #: [id number] #: [id number] Patient: MALIHA LAU FIDELINA PROGRESS NOTES Page 1 of 1 X Chad Mata MD X PROGRESS NOTE
--- NOTE | ~2016-09-27 | PN ---
Unit #: [id number] #: [id number] Patient: MALIHA LAU [id number] [facility] [address] [place] [address] [id number] I MR#: [id number] NAME: MALIHA LAU ROOM: [facility] Age: 26 Sex: F Admission Date: 09/27/2016 : 1990 Attending Physician: Chad Mata M.D. Admitting Physician: Chad Mata M.D. Primary Care Physician: Merari Back PROGRESS NOTES DATE 10/19/2016 DISCUSSION Ms. Lau is a 26-year-old white female who was seen today and chart was reviewed and case was discussed with the staff. She has been anxious, withdrawn and rather seclusive to herself. Meanwhile, she has been cooperative . MENTAL STATUS EXAMINATION Young white female who was casually dressed with fair personal hygiene, appears to be in no acute distress or discomfort. She was awake and alert on interaction with intact orientation. Her mood was anxious with congruent affect. She denies any suicidal or homicidal ideations Her insight and judgement remains slightly impaired. TREATMENT PLAN 1. We will continue her on her current medications and treatment protocol. We will monitor her response and make further adjustments as needed. 2. We will continue to follow up. Dictated by... Merari Hagan/jack TD: 10/20/2016 22:48 JOB #: [id number] Unit #: [id number] #: [id number] Patient: MALIHA LAU PROGRESS NOTES Page 1 of 1 X Chad Mata MD PROGRESS NOTE
--- NOTE | ~2016-09-27 | PN ---
Unit #: [id number] #: [id number] Patient: MALIHA LAU [id number] [facility] [address] [place] [address] [id number] I MR#: [id number] NAME: MALIHA LAU ROOM: 12 Age: 26 Sex: F Admission Date: 09/27/2016 : 1990 Attending Physician: Chad Mata M.D. Admitting Physician: Chad Mata M.D. Primary Care Physician: Merari Back PROGRESS NOTES DATE October 01, 2016 DISCUSSION Ms. Lau is a 26-year-old white female, who was seen today and chart was reviewed and the case was discussed with the staff. She has been anxious, withdrawn, but has not shown any agitation, irritability, or behavioral problems, and has been seclusive to herself and has been reporting some persistent depressive symptoms. Meanwhile, she has been taking her medications and tolerating them fairly well. MENTAL STATUS EXAMINATION Young white female, who was casually dressed with fair personal hygiene and appears to be in no acute distress or discomfort. The patient was awake and alert on interaction with intact orientation. Her mood was anxious with a congruent affect. Her speech is slow and goal-directed. She reports having suicidal ideations but denies any homicidal ideations, and also denies any auditory or visual hallucinations. Her insight and judgment remain slightly impaired. TREATMENT PLAN We will continue her on her current medications and treatment protocol, and will monitor her response, and make further adjustments as needed. Dictated by... Merari Hagan/alexis TD: 10/02/2016 07:02 JOB #: [id number] Unit #: [id number] #: [id number] Patient: MALIHA LAU FIDELINA PROGRESS NOTES Page 1 of 1 X Chad Mata MD X PROGRESS NOTE
--- NOTE | ~2016-09-27 | PN ---
Unit #: [id number] #: [id number] Patient: MALIHA LAU [id number] [facility] [address] [place] [address] [id number] I MR#: [id number] NAME: MALIHA LAU ROOM: [facility] Age: 26 Sex: F Admission Date: 09/27/2016 : 1990 Attending Physician: Chad Mata M.D. Admitting Physician: Chad Mata M.D. Primary Care Physician: Merari Back PROGRESS NOTES DATE OF SERVICE: 10/11/2016 SUBJECTIVE Ms. Lau is a 26-year-old white female who was seen today and chart was reviewed, and case was discussed with the staff. She has been anxious, withdrawn, and rather seclusive to herself. Meanwhile, she has been cooperative with treatment recommendations and has been taking the medications and tolerating them fairly well with no reported side effects. MENTAL STATUS EXAMINATION Young white female who was casually dressed with fair personal hygiene, appears to be in no acute distress or discomfort. She was awake and alert on interaction with intact orientation. Her mood was anxious with a congruent affect. She denies any suicidal or homicidal ideation, and also denies any auditory or visual hallucinations. Her insight and judgment remain slightly impaired. TREATMENT PLAN 1. We will continue on her current treatment protocol. We will monitor her response to the medications and make further adjustments as needed. 2. We will continue to follow up. Dictated by... Merari Hagan/maritza TD: 10/11/2016 13:43 JOB #: [id number] [facility] PROGRESS NOTES Page 1 of 1 X Chad Mata MD X PROGRESS NOTE
--- NOTE | ~2016-09-27 | CO ---
Unit #: [id number] #: [id number] Patient: MALIHA SCHREIBER [id number] [facility] [address] [place] [address] [id number] I MR#: [id number] NAME: MALIHA SCHREIBER ROOM: [facility] Age: 26 Sex: F Admission Date: 09/27/2016 : 1990 Attending Physician: Chad Mata M.D. Primary Care Physician: Brie Callahan M.D. CONSULTATION REPORT REASON FOR CONSULTATION To evaluate for the appropriateness of electroconvulsive therapy. HISTORY OF PRESENT ILLNESS The patient is a 26-year-old white female, who has been in and out of psychiatric hospitals more than ten times in the last seven months. The patient presents with her standard complaint of suicidal ideation and chronic depression. On evaluation with me today, she has psychomotor retardation, poor focus and concentration, loss of interest in activities, decreased energy, feelings of guilt and positive suicidal ideation. She indicates that she has had depression for most of her life that she does have periods of waxing and waning depression and this particular episode has been ongoing since February. The patient has no evidence of bipolar disorder. There is no history of joão, no psychosis is indicated or noted and she has no overt OCD symptoms on evaluation. No generalized anxiety or panic attacks noted. PAST PSYCHIATRIC HISTORY Please see Dr. Mata's evaluation for full details. She has been in and out of psychiatric hospitals at least ten times in the last seven months. The patient has a history of alcohol abuse in the past. No other drug abuse or issues noted. The patient has been on multiple medications in the past which includes a full dose of Seroquel, Wellbutrin, and Effexor both at maximum doses with no clinical benefit noted. She has never had ECT in the past. PAST MEDICAL HISTORY She has a history of gastroesophageal reflux disease and a history of asthma, as well. She also has hypertension, history of migraine headaches, hyperlipidemia. She has been diagnosed with cerebral palsy but her symptoms are pretty mild. Also, a history of obesity. ALLERGIES She is allergic to morphine. SURGICAL HISTORY She has had an appendectomy, cholecystectomy, and tonsillectomy and adenoidectomy in the past. She has never had any complications with anesthesia or recovery in the past. REVIEW OF SYSTEMS The patient denies any complaints on a full review of systems which includes no shortness of air, no GI or complaints, no chest pain, no neurological changes noted. Unit #: [id number] #: [id number] Patient: MALIHA SCHREIBER PHYSICAL EXAMINATION The patient's physical was performed, charted, and noted by the house physician at the time of her admission on the 28 of September. FAMILY/SOCIAL HISTORY Please see Dr. Mata's record for full details. MEDICATIONS Please see the patient's hospital [facility] for full list of medications. MENTAL STATUS EXAMINATION On exam, the patient is pleasant, cooperative. She makes good eye contact. She demonstrates some psychomotor retardation on her evaluation and presentation with me. Speech pattern is slow in rhythm, rate, and volume. She has no psychosis noted but her thought process is somewhat slow. Speech pattern is fluent. No dysarthrias or affluence is noted. The patient's mood is described as depressed and she does have a flat affect. It is appropriate and congruent with her stated mood. The patient's memory and concentration are fully intact and she is oriented to person, place, time, and situation today. Intelligence foundation and knowledge and ability to abstract appear to be in the average range. STRENGTHS Include, access to care. BARRIERS Chronic psychiatric illness. She has no homicidal ideation noted today but there is some vague statement of intermittent suicidal thoughts. DIFFERENTIAL DIAGNOSIS [place] I: F33.2. [place] II: Deferred. [place] III: Nothing acute. [place] IV: [place] V: PLAN 1. We will get an EKG and a TSH to complete her workup for ECT. 2. We will start the patient on ECT on Wednesday beginning a unilateral approach and titrate her seizure threshold and calculate treatment energy to four-to-six times her treatment seizure threshold in order to administer an effective ECT for her depressive symptoms and we will target nfr-il-dueeps treatments to bring her into remission. 3. No changes in medications. 4. The patient understands the risks and benefits of plan as stated above and agrees with the plan as stated. 5. No additional changes or recommendations. Dictated by... Paddy Eubanks M.D. KAROL/alexis TD: 10/05/2016 11:28 Unit #: [id number] #: [id number] Patient: MALIHA SCHREIBER JOB #: [id number] CONSULTATION REPORT Page 1 of 1 X Paddy Eubanks MD <ELECTRONICALLY SIGNED> 03/02/17 1702 X CONSULTATION REPORT
[2016-09-28 09:23] LABS: BASOPHIL# 0.1 X10e3 (0-0.3); BASOPHIL% 0.6 % (0-2.5); EOSINOPHIL# 0.5 X10e3 (0-0.7); EOSINOPHIL% 4.6 % (0.0-7.0); HEMATOCRIT 37.2 % (35.0-45.0); HEMOGLOBIN 11.7 gm/dL (12.0-16.0); LYMPHOCYTE% 34.1 % (17.0-45.0); MEAN CELL VOLUME 77.8 FL (83-96); MEAN CORPUSCULAR HEMOGLOBIN 24.4 PG (28-34); MEAN CORPUSCULAR HGB CONC 31.4 g/dL (30-36); MEAN PLATELET VOLUME 7.7 FL (6.5-11.5); MONOCYTE# 0.9 X10e3 (0-1.0); NEUTROPHIL# 6.1 X10e3 (1.5-7.1); NEUTROPHIL% 52.7 % (40-75); PLATELET COUNT 381 X10e3 (140-420); RED BLOOD COUNT 4.79 X10e (3.90-5.30); RED CELL DISTRIBUTION WIDTH 16.8 % (11.0-15.5); WHITE BLOOD COUNT 11.6 X10e3 (4.0-10.5)
[2016-09-28 09:28] LABS: DIFF IND NO
[2016-09-28 09:38] LABS: ALBUMIN SERUM 3.8 g/dL (3.5-5.0); ALKALINE PHOSPHATASE 80 U/L (32-92); ALT (SGPT) 15 U/L (10-40); AST (SGOT) 13 U/L (10-42); BILIRUBIN,TOTAL 0.4 mg/dL (0.2-2.0); BLOOD UREA NITROGEN 14 mg/dL (9-23); BUN/CREATININE RATIO 15.55; CALCIUM SERUM 9.2 mg/dL (8.4-10.2); CARBON DIOXIDE 20 mmol/L (22-31); CHLORIDE 109 mmol/L (100-111); CREATININE SERUM 0.9 mg/dL (0.6-1.4); GLOM FILT RATE Estimated ABOVE60 mL/min (>60); GLUCOSE FASTING 89 mg/dL (70-110); PROTEIN TOTAL SERUM 6.6 g/dL (6.0-8.3); SODIUM 138 mmol/L (135-145)
[2016-10-07] MEDS ORDERED: ZEBETA5 MG PO (07:55)
[2016-10-07] MEDS ORDERED: MAALOX ADVANCE770 ML PO (08:00)
[2016-10-09 11:08] LABS: AMPHETAMINE NEG (NEG); BARBITURATES NEG (NEG); BENZODIAZEPINES NEG (NEG); COCAINE NEG (NEG); MARIJUANA NEG (NEG); OPIATES NEG (NEG); TRICYCLIC ANTIDEPRESSANTS POS (NEG); U METHADONE NEG (NEG)
[2016-10-09 11:13] LABS: URINE BILIRUBIN NEG (NEG); URINE BLOOD NEG (NEG); URINE COLOR YELLOW; URINE GLUCOSE NORM (NORM); URINE KETONE NEG (NEG); URINE LEUKOCYTE ESTERASE 3+ (NEG); URINE NITRATE NEG (NEG); URINE PROTEIN NEG (NEG); URINE SPECIFIC GRAVITY 1.025 (1.003-1.035); URINE UROBILINOGEN NORM (NORM)
[2016-10-09 11:14] LABS: URINE APPEARANCE TURBID
[2016-10-09 11:30] LABS: URBCS1 AUWI 0-2 /[HPF] (0-2); URINE AMORPHOUS SEDIMENT AMORP URATES; URINE BACTERIA AUWI 1+ (NEGATIVE); URINE CRYSTALS URIC ACID /[HPF]; URINE SQUAMOUS EPITHELIAL CELL MODERATE /[HPF]
[2016-10-20] MEDS ORDERED: ACETAMINOPHEN650 M4 PO (08:00)
[2016-10-20] MEDS ORDERED: VISTARIL50 MG PO (08:01)
[2016-10-21] MEDS ORDERED: TOPIRAMATE100 MG PO (07:54)
[2016-10-21] MEDS ORDERED: EFFEXOR-XR150 MG PO (07:55)
[2016-10-21] MEDS ORDERED: BUPROPION XL300 MG PO (07:55)
[2016-10-21] MEDS ORDERED: VITAMIN D1000 UNI1 PO (07:56)
[2016-10-21] MEDS ORDERED: FLONASE 0.05% N16 G1 (07:56)
[2016-10-21] MEDS ORDERED: MINIPRESS PO (07:57)
[2016-10-21] MEDS ORDERED: PROTONIX PO (07:58)
[2016-10-21] MEDS ORDERED: MONTELUKAST SOD10 MG PO (07:58)
[2016-10-21] MEDS ORDERED: SEROQUEL PO (07:59)
[2016-10-21] MEDS ORDERED: CLARITIN10 M3 PO (07:59)
[2016-10-21] MEDS ORDERED: MILK OF MAGNESIA PO (08:00)
== END 2016-10-23 09:00 | disposition home or self-care (01) | DRG 885 ==
LOC: P1S 18:11 → P2L 10-06 14:22
PROVIDERS: Psychiatry & Neurology Psychiatry
PROC: GZB0ZZZ Electroconvulsive Therapy, Unilateral-Single Seizure (ICD-10-PCS; principal; 2016-10-07)
PROC: GZB0ZZZ Electroconvulsive Therapy, Unilateral-Single Seizure (ICD-10-PCS; 2016-10-09)
PROC: GZB0ZZZ Electroconvulsive Therapy, Unilateral-Single Seizure (ICD-10-PCS; 2016-10-12)
PROC: GZB0ZZZ Electroconvulsive Therapy, Unilateral-Single Seizure (ICD-10-PCS; 2016-10-14)
PROC: GZB0ZZZ Electroconvulsive Therapy, Unilateral-Single Seizure (ICD-10-PCS; 2016-10-16)
PROC: GZB0ZZZ Electroconvulsive Therapy, Unilateral-Single Seizure (ICD-10-PCS; 2016-10-19)
PROC: GZB0ZZZ Electroconvulsive Therapy, Unilateral-Single Seizure (ICD-10-PCS; 2016-10-21)
DX: F33.1 Major depressive disorder, recurrent, moderate (principal); R45.851 Suicidal ideations; E66.01 Morbid (severe) obesity due to excess calories; N39.0 Urinary tract infection, site not specified; J45.909 Unspecified asthma, uncomplicated; K21.9 Gastro-esophageal reflux disease without esophagitis; Z59.0 Homelessness; E78.5 Hyperlipidemia, unspecified; Z68.34 Body mass index [BMI] 34.0-34.9, adult; G80.9 Cerebral palsy, unspecified; Z90.49 Acquired absence of other specified parts of digestive tract; Z88.5 Allergy status to narcotic agent
CPT/HCPCS: 80053; 80307; 81003; 84443; 85025

== ENCOUNTER → 2016-10-07 | Day surgery (SDC) | payer OTHER ==
[~2016-10-07] MED LIST: ACETAMINOPHEN650 M4 PO; BUPROPION XL300 MG PO; CLARITIN10 M3 PO; EFFEXOR-XR150 MG PO; FLONASE 0.05% N16 G1; MAALOX ADVANCE770 ML PO; MILK OF MAGNESIA PO; MINIPRESS PO; MONTELUKAST SOD10 MG PO; PROTONIX PO; SEROQUEL PO; TOPIRAMATE100 MG PO; VISTARIL50 MG PO; VITAMIN D1000 UNI1 PO; ZEBETA5 MG PO
--- NOTE | ~2016-10-07 | EKG ---
PATIENT: MALIHA SCHREIBER UNIT #: [id number] Ventricular Rate: 80 BPM Atrial Rate: 80 BPM P-R Interval: 118 ms QRS Duration: 88 ms Q-T Interval: 390 ms QTC Calculation(Bezet): 449 ms P [place]: 15 degrees Calculated R [place]: 32 degrees Calculated T [place]: 34 degrees Diagnosis Line: Normal sinus rhythm Diagnosis Line: Normal ECG Diagnosis Line: When compared with ECG of 04-MAR-2016 13:37, Diagnosis Line: No significant change was found Diagnosis Line: Confirmed by WESLEY HERNANDEZ MD ([id number]) on 10/07/2016 Diagnosis Line: 9:21:57 PM INTERPRETING MD: MARY GRAY
--- NOTE | ~2016-10-07 | ECT ---
Unit #: [id number] #: [id number] Patient: MALIHA SCHREIBER [id number] [place] [address] [id number] O MR#: [id number] NAME: MALIHA SCHREIBER ROOM: Age: 26 Sex: F Admission Date: 10/07/2016 : 1990 Discharge Date: Attending Physician: Pdady Eubanks M.D. Referring Physician: Paddy Eubanks M.D. Primary Care Physician: Brie Callahan M.D. ECT NOTE DATE OF TREATMENT 10/07/2016 TREATMENT NUMBER 1 TREATMENT MODALITY Unilateral ECT ANESTHESIA Glycopyrrolate: 0.2 mg Brevital: 130 mg Succinylcholine: 100 mg TREATMENT PARAMETERS Charge: 96 millicoulombs Pulse Width: 1.0 milliseconds Frequency: 30 Hertz Duration: 2 seconds Current: 800 milliamps TREATMENT DELIVERED Energy: 21.8 joules Impedance: 282 ohms Charge: 96 millicoulombs SEIZURE MEASURES OMS: 33 seconds EE seconds COMPLICATIONS None. SUMMARY The patient had a good seizure with OMS and EEG measures on her third stimulus. We will give her ECT at 382 millicoulombs once we get her set up on Wednesday. DIFFERENTIAL DIAGNOSES AXIS I: F33.2. AXIS II: Deferred. Unit #: [id number] #: [id number] Patient: MALIHA SCHREIBER AXIS III: Nothing acute. Dictated by... Paddy Eubanks M.D. KAROL/lesvia TD: 10/08/2016 18:57 JOB #: [id number] ECT NOTE Page 1 of 1 X Paddy Eubanks MD <ELECTRONICALLY SIGNED> 03/02/17 1702 X ECT
== END | disposition home or self-care (01) ==
LOC: CSUR 07:09
DX: F33.2 Major depressive disorder, recurrent severe without psychotic features (principal); I10 Essential (primary) hypertension; J45.909 Unspecified asthma, uncomplicated; K21.9 Gastro-esophageal reflux disease without esophagitis; Z88.5 Allergy status to narcotic agent; Z91.048 Other nonmedicinal substance allergy status; Z79.899 Other long term (current) drug therapy; Z90.49 Acquired absence of other specified parts of digestive tract; Z90.89 Acquired absence of other organs
CPT/HCPCS: 84703; 90870; 93005; J0330; J1885

== ENCOUNTER → 2016-10-09 | Day surgery (SDC) | payer OTHER | END | disposition home or self-care (01) | LOC: CSUR 07:11 | DX: F33.2 Major depressive disorder, recurrent severe without psychotic features (principal); I10 Essential (primary) hypertension; G80.9 Cerebral palsy, unspecified; G43.909 Migraine, unspecified, not intractable, without status migrainosus; K31.84 Gastroparesis; E66.01 Morbid (severe) obesity due to excess calories; E66.9 Obesity, unspecified; Z68.34 Body mass index [BMI] 34.0-34.9, adult; Z79.899 Other long term (current) drug therapy; J45.909 Unspecified asthma, uncomplicated; Z98.890 Other specified postprocedural states; Z88.5 Allergy status to narcotic agent; Z88.8 Allergy status to other drugs, medicaments and biological substances; Z91.09 Other allergy status, other than to drugs and biological substances; Z90.49 Acquired absence of other specified parts of digestive tract | CPT/HCPCS: 90870; J0330; J1885 ==

== ENCOUNTER → 2016-10-12 | Day surgery (SDC) | payer OTHER ==
--- NOTE | ~2016-10-12 | ECT ---
Unit #: [id number] #: [id number] Patient: MALIHA SCHREIBER [id number] [place] [address] [id number] O MR#: [id number] NAME: MALIHA SCHREIBER ROOM: Age: 26 Sex: F Admission Date: 10/12/2016 : 1990 Discharge Date: Attending Physician: Paddy Eubanks M.D. Referring Physician: Paddy Eubanks M.D. Primary Care Physician: Brie Callahan M.D. ECT NOTE DATE OF TREATMENT 10/09/2016 TREATMENT NUMBER 2 TREATMENT MODALITY Unilateral ECT. ANESTHESIA Glycopyrrolate: 0.2 mg Brevital: 150 mg Succinylcholine: 100 mg TREATMENT PARAMETERS Charge: 400 millicoulombs Pulse Width: 1.0 milliseconds Frequency: 50 Hertz Duration: 5 seconds Current: 800 milliamps TREATMENT DELIVERED Energy: 85.8 joules Impedance: 257 ohms Charge: 400 millicoulombs SEIZURE MEASURES OMS: 24 seconds EE seconds COMPLICATIONS None. SUMMARY The patient had a good seizure with both OMS and EEG measures. Her depression has not shown any change from the first ECT but no side effects have been noted. I will continue her ECT treatments on Wednesday. DISCHARGE DIAGNOSIS AXIS I: F33.2 AXIS II: Deferred AXIS III: Nothing acute Unit #: [id number] #: [id number] Patient: MALIHA SCHREIBER Dictated by... Merari James/jack TD: 10/13/2016 02:54 JOB #: [id number] ECT NOTE Page 1 of 1 X Paddy Eubanks MD <ELECTRONICALLY SIGNED> 02/08/17 1207 X ECT
--- NOTE | ~2016-10-12 | ECT ---
Unit #: [id number] #: [id number] Patient: MALIHA SCHREIBER [id number] [place] [address] [id number] O MR#: [id number] NAME: MALIHA SCHREIBER ROOM: Age: 26 Sex: F Admission Date: 10/12/2016 : 1990 Discharge Date: Attending Physician: Paddy Eubanks M.D. Referring Physician: Paddy Eubanks M.D. Primary Care Physician: Brie Callahan M.D. ECT NOTE DATE OF TREATMENT 10/12/2016 TREATMENT NUMBER 3 TREATMENT MODALITY Unilateral ECT. ANESTHESIA Glycopyrrolate: 0.2 mg Brevital: 130 mg Succinylcholine: 100 mg TREATMENT PARAMETERS Charge: 400 millicoulombs Pulse Width: 1.0 milliseconds Frequency: 50 Hertz Duration: 5 seconds Current: 800 milliamps TREATMENT DELIVERED Energy: 87.6 joules Impedance: 263 ohms Charge: 400 millicoulombs SEIZURE MEASURES OMS: 22 seconds EE seconds COMPLICATIONS None. SUMMARY The patient had a good seizure both with OMS and EEG measures. Depression does show a lot of signs of improvement psychomotor retardation is improved. She has been sleeping better overall her attitude is better. She seems to be much less depressed. I will give her another ECT treatment on Wednesday and if she is improved between today and Wednesday as much as she has over the weekend we will conclude her ECT treatments. DIFFERENTIAL DIAGNOSIS [place] I: F33.2. [place] II: Deferred. Unit #: [id number] #: [id number] Patient: MALIHA SCHREIBER [place] III: Nothing acute. Dictated by... Paddy Eubanks M.D. KAROL/jack TD: 10/14/2016 00:07 JOB #: [id number] ECT NOTE Page 1 of 1 X Paddy Eubanks MD <ELECTRONICALLY SIGNED> 02/08/17 1207 X ECT
== END | disposition home or self-care (01) ==
LOC: CSUR 07:08
DX: F33.2 Major depressive disorder, recurrent severe without psychotic features (principal)
CPT/HCPCS: 90870; J0330; J1885

== ENCOUNTER → 2016-10-14 | Day surgery (SDC) | payer OTHER ==
--- NOTE | ~2016-10-14 | ECT ---
Unit #: [id number] #: [id number] Patient: MALIHA SCHREIBER [id number] [place] [address] [id number] O MR#: [id number] NAME: MALIHA SCHREIBER ROOM: Age: 26 Sex: F Admission Date: 10/14/2016 : 1990 Discharge Date: Attending Physician: Paddy Eubanks M.D. Referring Physician: Paddy Eubanks M.D. Primary Care Physician: Brie Callahan M.D. ECT NOTE DATE OF TREATMENT 10/14/2016 TREATMENT NUMBER 4 TREATMENT MODALITY Unilateral ECT ANESTHESIA Glycopyrrolate: 0.2 mg Brevital: 130 mg Succinylcholine: 100 mg TREATMENT PARAMETERS Charge: 400 millicoulombs Pulse Width: 1.0 milliseconds Frequency: 50 Hertz Duration: 5 seconds Current: 800 milliamps TREATMENT DELIVERED Energy: 88.5 joules Impedance: 267 ohms Charge: 400 millicoulombs SEIZURE MEASURES OMS: 17 seconds EE seconds COMPLICATIONS None. SUMMARY The patient had a good seizure with OMS and EEG measures. Depression has not really shown a lot of change since we initiated her ECT. She continues to have psychomotor retardation, poor focus and concentration, loss of interest in activities, subjective feeling of depression, feeling of guilt, passive suicidal thoughts. I will continue her ECT treatments on Wednesday. DIFFERENTIAL DIAGNOSES AXIS I: F33.2. Unit #: [id number] #: [id number] Patient: MALIHA SCHREIBER AXIS II: Deferred. AXIS III: Nothing acute. Dictated by... Merari James/lesvia TD: 10/14/2016 21:21 JOB #: [id number] ECT NOTE Page 1 of 1 X Paddy Eubanks MD <ELECTRONICALLY SIGNED> 02/08/17 1207 X ECT
== END | disposition home or self-care (01) ==
LOC: CSUR 07:02
DX: F33.2 Major depressive disorder, recurrent severe without psychotic features (principal); I10 Essential (primary) hypertension; J45.909 Unspecified asthma, uncomplicated; E66.01 Morbid (severe) obesity due to excess calories; K21.9 Gastro-esophageal reflux disease without esophagitis; Z68.34 Body mass index [BMI] 34.0-34.9, adult; Z88.5 Allergy status to narcotic agent; Z88.8 Allergy status to other drugs, medicaments and biological substances; Z91.048 Other nonmedicinal substance allergy status; Z79.899 Other long term (current) drug therapy; Z90.49 Acquired absence of other specified parts of digestive tract; Z90.89 Acquired absence of other organs
CPT/HCPCS: 90870; J0330; J1885

== ENCOUNTER → 2016-10-16 | Day surgery (SDC) | payer OTHER ==
--- NOTE | ~2016-10-16 | ECT ---
Unit #: [id number] #: [id number] Patient: MALIHA SCHREIBER [id number] [place] [address] [id number] O MR#: [id number] NAME: MALIHA SCHREIBER ROOM: Age: 26 Sex: F Admission Date: 10/16/2016 : 1990 Discharge Date: Attending Physician: Paddy Eubanks M.D. Referring Physician: Paddy Eubanks M.D. Primary Care Physician: Brie Callahan M.D. ECT NOTE DATE OF TREATMENT 10/16/2016 TREATMENT NUMBER 5 TREATMENT MODALITY Unilateral ECT ANESTHESIA Glycopyrrolate: 0.2 mg Brevital: 130 mg Succinylcholine: 100 mg TREATMENT PARAMETERS Charge: 400 millicoulombs Pulse Width: 1.0 milliseconds Frequency: 50 Hertz Duration: 5 seconds Current: 800 milliamps TREATMENT DELIVERED Energy: 85.2 joules Impedance: 257 ohms Charge: 400 millicoulombs SEIZURE MEASURES OMS: 21 seconds EE seconds COMPLICATIONS None. SUMMARY The patient had a good seizure with both OMS and EEG measures. Her depression is showing some signs of improvement but she does continue to have psychomotor retardation, poor focus and concentration, loss of interest in activities, subjective feeling of depression with an appropriate affect. She has no overt suicidal or homicidal ideation noted on evaluation today. I will continue her ECT treatments on Wednesday. DISCHARGE DIAGNOSES AXIS I: F33.2. AXIS II: Deferred. Unit #: [id number] #: [id number] Patient: MALIHA SCHREIBER AXIS III: Nothing acute. Dictated by... Paddy Eubanks M.D. KAROL/lesvia TD: 10/16/2016 19:52 JOB #: [id number] ECT NOTE Page 1 of 1 X Paddy Eubanks MD <ELECTRONICALLY SIGNED> 02/08/17 1207 X ECT
== END | disposition home or self-care (01) ==
LOC: CSUR 07:13
DX: F33.2 Major depressive disorder, recurrent severe without psychotic features (principal); K21.9 Gastro-esophageal reflux disease without esophagitis; E66.9 Obesity, unspecified; Z68.34 Body mass index [BMI] 34.0-34.9, adult; Z79.899 Other long term (current) drug therapy; J45.909 Unspecified asthma, uncomplicated; Z88.5 Allergy status to narcotic agent; Z88.8 Allergy status to other drugs, medicaments and biological substances; Z91.09 Other allergy status, other than to drugs and biological substances
CPT/HCPCS: 90870; J0330; J1885

== ENCOUNTER → 2016-10-19 | Day surgery (SDC) | payer OTHER ==
--- NOTE | ~2016-10-19 | ECT ---
Unit #: [id number] #: [id number] Patient: MALIHA SCHREIBER [id number] [address] [address] [id number] O MR#: [id number] NAME: MALIHA SCHREIBER ROOM: Age: 26 Sex: F Admission Date: 10/19/2016 : 1990 Discharge Date: Attending Physician: Paddy Eubanks M.D. Referring Physician: Paddy Eubanks M.D. Primary Care Physician: Brie Callahan M.D. ECT NOTE DATE OF TREATMENT 10/19/2016 TREATMENT NUMBER 6 TREATMENT MODALITY Unilateral ECT. ANESTHESIA Glycopyrrolate: 0.2 mg. Brevital: 130 mg. Succinylcholine: 100 mg. TREATMENT PARAMETERS Charge: 400 millicoulombs Pulse Width: 1.0 milliseconds Frequency: 50 Hertz Duration: 5 seconds Current: 800 milliamps TREATMENT DELIVERED Energy: 91.5 joules Impedance: 279 ohms Charge: 400 millicoulombs SEIZURE MEASURES OMS: 24 seconds EE seconds COMPLICATIONS None. SUMMARY The patient had a good seizure with OMS and EEG measures for depression. Is showing some signs of improvement. She has begun to get more engaged in activities such as reading. She is more interactive with staff and peers. Does continue to have some depressive symptoms and I will continue her treatments on Wednesday and we will probably wrap her treatments up this week. DIFFERENTIAL DIAGNOSES AXIS I: F33.2. Unit #: [id number] #: [id number] Patient: MALIHA SCHREIBER AXIS II: Deferred. AXIS III: Nothing acute. Dictated by... Paddy Eubanks M.D. KAROL/dionna TD: 10/20/2016 09:58 JOB #: [id number] ECT NOTE Page 1 of 1 X Paddy Eubanks MD <ELECTRONICALLY SIGNED> 02/08/17 1207 X ECT
== END | disposition home or self-care (01) ==
LOC: CSUR 07:08
DX: F33.2 Major depressive disorder, recurrent severe without psychotic features (principal); I10 Essential (primary) hypertension; E78.5 Hyperlipidemia, unspecified; K21.9 Gastro-esophageal reflux disease without esophagitis; J45.909 Unspecified asthma, uncomplicated; R00.0 Tachycardia, unspecified; G80.9 Cerebral palsy, unspecified; E66.01 Morbid (severe) obesity due to excess calories; Z98.890 Other specified postprocedural states; Z90.49 Acquired absence of other specified parts of digestive tract; Z88.8 Allergy status to other drugs, medicaments and biological substances; Z88.5 Allergy status to narcotic agent
CPT/HCPCS: 90870; J0330; J1885

== ENCOUNTER → 2016-10-21 | Day surgery (SDC) | payer OTHER ==
--- NOTE | ~2016-10-21 | ECT ---
Unit #: [id number] #: [id number] Patient: MALIHA SCHREIBER [id number] [id number] [id number] O MR#: [id number] NAME: MALIHA SCHREIBER ROOM: Age: 26 Sex: F Admission Date: 10/21/2016 : 1990 Discharge Date: Attending Physician: Paddy Eubanks M.D. Primary Care Physician: Brie Callahan M.D. ECT NOTE DATE OF TREATMENT 10/21/2016 TREATMENT NUMBER 7 TREATMENT MODALITY Unilateral ECT. ANESTHESIA Glycopyrrolate: 0.2 mg Brevital: 130 mg Succinylcholine: 100 mg TREATMENT PARAMETERS Charge: 400 millicoulombs Pulse width: 1.0 msec Frequency: 50 Hz Duration: 5 seconds Current: 800 milliamps TREATMENT DELIVERED Energy: 83.9 joules Impedance: 254 ohms Charge: 400 millicoulombs SEIZURE MEASURES OMS: 17 seconds EE seconds COMPLICATIONS None SUMMARY The patient had a good seizure with OMS and EEG measures. Depression seems to have reached the status of remission today. She does not have any overt side effects noted from her ECT. She has been tolerating her ECTs well and will be discharged from the hospital this week, likely, and then follow up with her primary psychiatrist back home. DIFFERENTIAL DIAGNOSIS AXIS I: F33.2 AXIS II: Deferred. Unit #: [id number] #: [id number] Patient: MALIHA SCHREIBER AXIS III: Nothing acute. Dictated by... Merari James/daniel TD: 10/23/2016 07:40 JOB #: [id number] ECT NOTE Page 1 of 1 X Paddy Eubanks MD <ELECTRONICALLY SIGNED> 02/08/17 1207 X ECT
== END | disposition home or self-care (01) ==
LOC: CSUR 07:16
DX: F33.2 Major depressive disorder, recurrent severe without psychotic features (principal); I10 Essential (primary) hypertension; E78.5 Hyperlipidemia, unspecified; K21.9 Gastro-esophageal reflux disease without esophagitis; J45.909 Unspecified asthma, uncomplicated; K31.84 Gastroparesis; R00.0 Tachycardia, unspecified; E66.01 Morbid (severe) obesity due to excess calories; Z79.899 Other long term (current) drug therapy; Z88.8 Allergy status to other drugs, medicaments and biological substances; Z88.5 Allergy status to narcotic agent; Z98.890 Other specified postprocedural states; Z91.09 Other allergy status, other than to drugs and biological substances
CPT/HCPCS: 84703; 90870; J1885